=== PATIENT | female | born 1945 | race Asian ===

== ENCOUNTER 2017-04-25 06:12 | Day surgery (SDC) | payer OTHER ==
[2017-04-25] MEDS ORDERED: CEFAZOLIN 1 GM INJ (07:00)
[2017-04-25] MEDS ORDERED: MIDAZOLAM 1 MG/ML 2 ML INJ (08:04)
[2017-04-25] MEDS ORDERED: LIDOCAINE 2% (SDV) 5 ML INJ (08:04)
[2017-04-25] MEDS ORDERED: PROPOFOL 20 ML (08:04)
[2017-04-25] MEDS ORDERED: ONDANSETRON 4 MG INJ (08:07)
[2017-04-25] MEDS ORDERED: DEXAMETHASONE 4 MG/ML 1 ML INJ (08:07)
[2017-04-25] MEDS ORDERED: FAMOTIDINE 20 MG INJ (08:07)
[2017-04-25] MEDS ORDERED: EPHEDrine SULFATE 50 MG/5 ML SYG (08:30)
[2017-04-25] MEDS: POVIDONE IODINE 10% 28.4 GM OINT (08:40)
[2017-04-25] MEDS: BUPIVACAINE 0.5% (SDV) 30 ML INJ (08:40)
[2017-04-25] MEDS ORDERED: PROCHLORPERAZINE 10 MG INJ IV (09:30)
[2017-04-25] MEDS ORDERED: DIPHENHYDRAMINE 50 MG INJ IV (09:30)
[2017-04-25] MEDS ORDERED: OXYCODONE/ACETAMINOPHEN (5/325) TAB PO (09:30)
[2017-04-25] MEDS ORDERED: HYDROmorphONE (0.2 MG/ML) 10ML SYG IV (09:30)
[2017-04-25] MEDS ORDERED: FENTAnyl 50 MCG/ML VIAL IV (09:30)
[2017-04-25] MEDS ORDERED: MEPERIDINE 25 MG INJ IV (09:30)
[2017-04-25] MEDS: ONDANSETRON 4 MG INJ IV (11:19)
== END 2017-04-25 12:46 | disposition home or self-care (01) ==
LOC: SDS 06:12
DX: M20.11 Hallux valgus (acquired), right foot (principal); M21.611 Bunion of right foot
CPT/HCPCS: 28298

== ENCOUNTER 2017-06-23 11:03 | Day surgery (SDC) | payer OTHER ==
[2017-06-23] MEDS ORDERED: BUPIVACAINE 0.5% (SDV) 30 ML INJ (12:05)
[2017-06-23] MEDS ORDERED: LIDOCAINE 1% (MPF) 30 ML INJ (12:05)
[2017-06-23] MEDS ORDERED: BACITRACIN/POLYMYXIN 28.35 GM OINT TOP (12:06)
[2017-06-23] MEDS ORDERED: FENTAnyl 50 MCG/ML VIAL (13:30)
[2017-06-23] MEDS ORDERED: POVIDONE IODINE 10% 28.4 GM OINT (14:26)
[2017-06-23] MEDS ORDERED: PROPOFOL 20 ML (14:38)
[2017-06-23] MEDS ORDERED: LIDOCAINE 2% (SDV) 5 ML INJ (14:38)
[2017-06-23] MEDS ORDERED: CEFAZOLIN 1 GM INJ (14:38)
[2017-06-23] MEDS ORDERED: ONDANSETRON 4 MG INJ (14:39)
[2017-06-23] MEDS ORDERED: FENTAnyl 50 MCG/ML VIAL IV (15:00)
[2017-06-23] MEDS ORDERED: MEPERIDINE 25 MG INJ IV (15:00)
[2017-06-23] MEDS ORDERED: DIPHENHYDRAMINE 50 MG INJ IV (15:00)
[2017-06-23] MEDS ORDERED: HYDROmorphONE (0.2 MG/ML) 10ML SYG IV ×2 (15:00)
[2017-06-23] MEDS ORDERED: ONDANSETRON 4 MG INJ IV (15:00)
== END 2017-06-23 16:25 | disposition home or self-care (01) ==
LOC: SDS 11:03
DX: M20.12 Hallux valgus (acquired), left foot (principal); M21.612 Bunion of left foot; I10 Essential (primary) hypertension
CPT/HCPCS: 28299